=== PATIENT | male | born 1990 | race African-American/Black ===

== ENCOUNTER 2022-03-04 12:55 | Emergency (ER) | payer MEDICAID ==
[~2022-03-04] VITALS: Ht 185.4 cm; Wt 105.0 kg
[2022-03-04 13:00] VITALS: BP 146/83
[2022-03-04] MEDS ORDERED: IBUPROFEN 800MG TABLET PO ONE (14:45)
[2022-03-04] MEDS ORDERED: PENICILLIN G BENZATHINE 1,200,000 UNITS/2ML SYR IM ONE (14:45)
[2022-03-04] MEDS ORDERED: IBUP-2030 MT (15:12)
== END 2022-03-04 15:37 | disposition home or self-care (01) ==
LOC: ER 13:27
DX: J02.9 Acute pharyngitis, unspecified (principal)
CPT/HCPCS: 96372; 99283; J0561